=== PATIENT | female | born 1980 | race Caucasian/White ===

== ENCOUNTER 2016-07-06 20:21 | Emergency (ER) | payer MEDICAID ==
[~2016-07-06] VITALS: Ht 160 cm; Wt 54.0 kg
[~2016-07-06 20:21] MED LIST: CHLO.12%30 SSP; PENI500T PO; PREN0.01
[2016-07-06 20:23] VITALS: BP 137/91; PULSE 82; RESP 15; TEMP 98.9; O2SAT 99
[2016-07-06] MEDS ORDERED: GABA400C5 PO (20:42)
[2016-07-06] MEDS ORDERED: DICL50TA3 PO (21:09)
[2016-07-06] MEDS ORDERED: PERI0.126 SWISH-SPIT (21:09)
[2016-07-06] MEDS ORDERED: CLIN150 PO (21:09)
--- NOTE | 2016-07-06 21:12 | PD ---
HPI Chief Complaint: Oral / Dental Pain or Problem Time Seen by Provider: 21:09 Travel History International Travel<30 days: No Contact w/Intl Traveler<30days: No History of Present Illness HPI 35-year-old white female presents to emergency Department with complaints of dental pain. She states that she had just finished a course of amoxicillin for dental pain. She has not seen a dentist yet. She states once again over last few days she's had increasing pain to her right lower maxilla. She denies any fever chills. No difficulty swallowing. No shortness of breath or wheezing. 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, chronic joint pain Autoimmune Disease: Yes (RA) Diminished Hearing: No Immunizations Current: Yes Tetanus Vaccination: < 5 Years ?: Not LMP: TUBAL : 4 Para: 4 Miscarriage: 0 : 0 Past Surgical History Narrative Surgical Tubal ligation, right forearm surgery for tendon repair Social History Alcohol Use: No Tobacco Use: Yes Substance Use: No Allergies-Medications (Allergen,Severity, Reaction): Coded Allergies: No Known Allergies (Unverified , 07/06/16) Reported Meds & Prescriptions Reported Meds & Active Scripts Active Reported Gabapentin 400 Mg Cap 400 Cap PO TID Review of Systems Except as stated in HPI: all other systems reviewed are Neg Physical Exam Narrative GENERAL: Well-developed, well-nourished in no acute distress. Nontoxic appearing. HEAD: Normocephalic, atraumatic. EYES: Pupils equal round and reactive. Extraocular motions intact. No scleral icterus. No injection or drainage. ENT: TMs clear without erythema. The external auditory canals clear. Nose: clear . Posterior pharynx is pink and moist. No tonsillar edema or exudate. Uvula midline. Airway patent. The patient is diffuse periodontal disease. She has multiple teeth decayed to the gumline. There is gingival erythema and edema. NECK: Trachea midline.Supple, nontender, moves head freely. No central bony tenderness or spasm. CARDIOVASCULAR: Regular rate and rhythm without murmurs, gallops, or rubs. RESPIRATORY: Clear to auscultation. Breath sounds equal bilaterally. No wheezes , rales, or rhonchi. GASTROINTESTINAL: Abdomen soft, non-tender, nondistended. No hepato-splenomegaly , or palpable masses. No guarding. EXTREMITIES: No clubbing, cyanosis, or edema. No joint tenderness, effusion, or edema noted. BACK: Nontender without deformity or crepitance. No flank tenderness. Data Data Last Documented VS Vital Signs Date Time Temp Pulse Resp B/P Pulse Ox O2 Delivery O2 Flow Rate FiO2 07/06/16 20:23 98.9 82 15 137/91 99 Room Air Orders Clindamycin (Cleocin) (07/06/16 21:15) Acetamin-Hydrocod 325-5 Mg (Howard 5-325 (07/06/16 21:15) MDM Medical Decision Making Medical Screen Exam Complete: Yes Emergency Medical Condition: Yes Medical Record Reviewed: Yes Differential Diagnosis MDM: Moderate Differential diagnoses: Dental abscess, dental caries, osteitis, cellulitis Narrative Course This is dental abscess, dental caries Patient is given clindamycin 300 mg by mouth and Lortab 5 a grams by mouth. Diagnosis Primary Impression: Dental abscess Additional Impression: Dental caries Patient Instructions: Narcotic given in the ED, General Instructions Additional Instructions: Rest. Saltwater gargles. [place] oil on cotton balls. Clindamycin and diclofenac. Peridex.. follow-up with a dentist as soon as possible. And return to the ER if any problems. Med/Other Pt SpecificInfo: Prescription(s) given Scripts Diclofenac Sodium DR 50 Mg Tabdr50 Mg PO TID #21 TAB Prov:Jad Esteban MD 07/06/16 Chlorhexidine Gluconate (Mouth) Liq (Peridex Liq)0.12% Soln10 Ml SWISH-SPIT Q8HR #473 ML Prov:Jad Esteban MD 07/06/16 Clindamycin (Cleocin)150 Mg Uln772 Mg PO Q6H #80 CAP Prov:Jad Esteban MD 07/06/16 Disposition: 01 DISCHARGE HOME Condition: Stable Oni Cabrera Jul 06, 2016 21:12
[2016-07-06] MEDS ORDERED: ACETAMINOPHEN/HYDROcodone 325 MG/5 MG TAB PO ONE (21:15)
[2016-07-06] MEDS ORDERED: CLINDAMYCIN 150 MG CAP PO ONE (21:15)
[2016-07-06 21:27] VITALS: BP 135/77
== END 2016-07-06 21:27 | disposition home or self-care (01) ==
LOC: NEPK 20:21
DX: K04.7 Periapical abscess without sinus (principal); K02.9 Dental caries, unspecified; Z72.0 Tobacco use
CPT/HCPCS: 99282

== ENCOUNTER 2016-08-20 23:57 | Emergency (ER) | payer MEDICAID ==
[~2016-08-20] VITALS: Ht 165.1 cm; Wt 54.0 kg
[~2016-08-20 23:57] MED LIST changes: -CHLO.12%30 SSP; +CLIN150 PO; +DICL50TA3 PO; +GABA400C5 PO; -PENI500T PO; +PERI0.126 SWISH-SPIT; -PREN0.01
[2016-08-21] VITALS: BP 121/80; PULSE 93; RESP 16; TEMP 98.2; O2SAT 98
--- NOTE | 2016-08-21 01:29 | PD ---
HPI Chief Complaint: Abdominal Pain Time Seen by Provider: 01:25 Travel History International Travel<30 days: No Contact w/Intl Traveler<30days: No Traveled to known affect area: No History of Present Illness HPI 36-year-old female presents to the emergency department by private transportation for complaint of abdominal pain since yesterday. Patient also has right groin hernia. Patient denies fever chills nausea vomiting flank pain dysuria frequency urgency vaginal discharge or vaginal bleeding. Patient notes abdominal distention. Patient has taken no medication for symptoms. Patient is 7 para 6 AB 1. Patient's last menstrual period was reportedly normal for her one week ago. Patient rates pain as 5/10 in intensity at this time but at its worst as 9/10 in intensity. Patient is unable to identify exacerbating or alleviating factors. Patient is status post tubal ligation. PFSH Past Medical History Narrative Medical Dental disease rheumatoid arthritis tubal ligation Ab1 tobacco use nursing notes reviewed Autoimmune Disease: Yes (RA) Diminished Hearing: No Immunizations Current: Yes ?: Not : 7 Para: 6 Miscarriage: 1 : 0 Tubal Ligation: Yes Social History Alcohol Use: No Tobacco Use: Yes Substance Use: No Allergies-Medications (Allergen,Severity, Reaction): Coded Allergies: No Known Allergies (Unverified , 08/21/16) Reported Meds & Prescriptions Reported Meds & Active Scripts Active Diclofenac Sodium DR (Diclofenac Sodium) 50 Mg Tabdr 50 Mg PO TID Peridex Liq (Chlorhexidine Gluconate (Mouth) Liq) 0.12% Soln 10 Ml SWISH-SPIT Q8HR Cleocin (Clindamycin HCl) 150 Mg Cap 300 Mg PO Q6H Reported Gabapentin 400 Mg Cap 400 Cap PO TID Review of Systems Except as stated in HPI: all other systems reviewed are Neg Physical Exam Narrative GENERAL: Well-developed well-nourished female in acute distress no respiratory distress SKIN: Warm and dry. HEAD: Normocephalic. EYES: No scleral icterus. No injection or drainage. NECK: Supple, trachea midline. No JVD or lymphadenopathy. CARDIOVASCULAR: Regular rate and rhythm without murmurs, gallops, or rubs. RESPIRATORY: Breath sounds equal bilaterally. No accessory muscle use. GASTROINTESTINAL: Abdomen soft, non-tender, nondistended. MUSCULOSKELETAL: No cyanosis, or edema. BACK: Nontender without obvious deformity. No CVA tenderness. Data Data Last Documented VS Vital Signs Date Time Temp Pulse Resp B/P Pulse Ox O2 Delivery O2 Flow Rate FiO2 08/21/16 00:40 15 08/21/16 00:00 98.2 93 121/80 98 Room Air Orders Basic Metabolic Panel (Bmp) (08/21/16 01:25) Complete Blood Count With Diff (08/21/16 01:25) Lipase (08/21/16 01:25) Urinalysis - C+S If Indicated (08/21/16 01:25) Iv Access Insert/Monitor (08/21/16 01:25) Ed Urine Pregnancytest Poc (08/21/16 01:25) Labs Laboratory Tests Test 08/21/16 01:55 White Blood Count 7.0 TH/MM3 Red Blood Count 3.79 MIL/MM3 Hemoglobin 10.6 GM/DL Hematocrit 32.9 % Mean Corpuscular Volume 86.7 FL Mean Corpuscular Hemoglobin 28.0 PG Mean Corpuscular Hemoglobin 32.3 % Concent Red Cell Distribution Width 14.9 % Platelet Count 285 TH/MM3 Mean Platelet Volume 8.7 FL Neutrophils (%) (Auto) 61.8 % Lymphocytes (%) (Auto) 26.2 % Monocytes (%) (Auto) 9.6 % Eosinophils (%) (Auto) 1.4 % Basophils (%) (Auto) 1.0 % Neutrophils # (Auto) 4.3 TH/MM3 Lymphocytes # (Auto) 1.8 TH/MM3 Monocytes # (Auto) 0.7 TH/MM3 Eosinophils # (Auto) 0.1 TH/MM3 Basophils # (Auto) 0.1 TH/MM3 CBC Comment DIFF FINAL Differential Comment Urine Color YELLOW Urine Turbidity CLEAR Urine pH 6.0 Urine Specific [place] 1.016 Urine Protein NEG mg/dL Urine Glucose (UA) NEG mg/dL Urine Ketones NEG mg/dL Urine Occult Blood NEG Urine Nitrite NEG Urine Bilirubin NEG Urine Urobilinogen LESS THAN 2.0 MG/DL Urine Leukocyte Esterase NEG Urine WBC 1 /hpf Urine Squamous Epithelial <1 /hpf Cells Microscopic Urinalysis Comment CULT NOT INDICATED Sodium Level 142 MEQ/L Potassium Level 3.8 MEQ/L Chloride Level 105 MEQ/L Carbon Dioxide Level 27.1 MEQ/L Anion Gap 10 MEQ/L Blood Urea Nitrogen 8 MG/DL Creatinine 0.93 MG/DL Estimat Glomerular Filtration 67 ML/MIN Rate Random Glucose 91 MG/DL Calcium Level 8.4 MG/DL Lipase 217 U/L MDM Medical Decision Making Medical Screen Exam Complete: Yes Emergency Medical Condition: Yes Medical Record Reviewed: Yes Interpretation(s) CBC & BMP Diagram 08/21/16 01:55 Vital Signs Date Time Temp Pulse Resp B/P Pulse Ox O2 Delivery O2 Flow Rate FiO2 08/21/16 00:40 15 08/21/16 00:00 98.2 93 16 121/80 98 Room Air poc hcg: negative UA: wnl Differential Diagnosis Abdominal pain, colitis, UTI, also to consider appendicitis, pancreatitis, cholecystitis Narrative Course Patient presents with soft nontender mildly distended abdomen with readily reducible right inguinal hernia with normal vital signs except mild elevation of heart rate 93 we'll obtain basic lab work including urinalysis test CBC metabolic panel and lipase. Patient informed of lab results labs and found to be in normal range; patient feeling improved after resting and is stable for outpatient management. Patient encouraged to follow-up with her primary care provider return to the emergency department for any concerns. Discussed with patient technique to reduce her hernia should she notice any recurrence and to return to the emergency department if she is unable to reduce it readily by just resting and applying gentle pressure to the site. Patient provided prescription for ibuprofen. Diagnosis Primary Impression: Inguinal hernia Qualified Code: K40.90 - Unilateral inguinal hernia without obstruction or gangrene, recurrence not specified Referrals: [facility] 2 days Primary Care Physician call for appointment Patient Instructions: General Instructions Additional Instructions: May take ibuprofen/Advil/Motrin 600 mg as often as every 6 hours for pain associated with inflammation for fever 100.4F or greater May use acetaminophen/Tylenol every 4-6 hours as needed for fever 100.4F or greater or for minor pain Follow-up with primary care provider or [facility] Return to the emergency department for any concerns or change in condition Increase fluid hydration Med/Other Pt SpecificInfo: Prescription(s) given Scripts Ibuprofen 600 Mg Bos120 Mg PO Q8H PRN (PAIN) #7 TAB Ref 0 Prov:Lashaun Pardo MD 08/21/16 Disposition: 01 DISCHARGE HOME Condition: Stable Lashaun Pardo MD August 21, 2016 01:29
[2016-08-21 02:05] LABS: AUTOMATED NEUTROPHIL # 4.3 TH/MM3 (1.8-7.7); BASOPHIL # 0.1 TH/MM3 (0-0.2); BLOOD, URINE NEG (NEG); EOSINOPHIL # 0.1 TH/MM3 (0-0.4); EOSINOPHIL % 1.4 % (0.0-4.0); GLUCOSE,URINE NEG (NEG); HEMATOCRIT 32.9 % (35.0-46.0); HEMO FLAGS DIFF FINAL; KETONE, URINE NEG (NEG); LYMPH % 26.2 % (9.0-44.0); LYMPHOCYTE # 1.8 TH/MM3 (1.0-4.8); MEAN CELL VOLUME 86.7 FL (80.0-100.0); MEAN CORPUSCULAR HGB CONC 32.3 % (32.0-36.0); MONO % 9.6 % (0.0-8.0); NEUT % 61.8 % (16.0-70.0); NITRITE,URINE NEG (NEG); PLATELET COUNT 285 TH/MM3 (150-450); RED BLOOD COUNT 3.79 MIL/MM3 (4.00-5.30); RED CELL DISTRIBUTION WIDTH 14.9 % (11.6-17.2); SQUAMOUS EPITHELIAL CELL URINE <1 /hpf (0-5); URINE COLOR YELLOW (YELLW/STRAW)
[2016-08-21 02:10] LABS: COMMENT (UR) CULT NOT INDICATED; CULTURE IF INDICATED CULT NOT INDICATED
[2016-08-21 02:45] LABS: BICARBONATE 27.1 MEQ/L (21.0-32.0); POTASSIUM 3.8 MEQ/L (3.5-5.1)
[2016-08-21] MEDS ORDERED: IBUP-232 PO (03:18)
== END 2016-08-21 04:30 | disposition home or self-care (01) ==
LOC: NEPC 23:57
DX: K40.90 Unilateral inguinal hernia, without obstruction or gangrene, not specified as recurrent (principal); R14.0 Abdominal distension (gaseous); R00.0 Tachycardia, unspecified; Z72.0 Tobacco use; Z87.39 Personal history of other diseases of the musculoskeletal system and connective tissue; Z86.2 Personal history of diseases of the blood and blood-forming organs and certain disorders involving the immune mechanism
CPT/HCPCS: 80048; 81001; 83690; 84703; 85025; 99283